=== PATIENT | male | born 1970 | race Caucasian/White ===

== ENCOUNTER 2017-06-19 22:45 | Emergency (ER) | payer BC ==
[~2017-06-19] VITALS: Ht 175.3 cm; Wt 100.9 kg
[2017-06-19 23:17] LABS: HEMATOCRIT 38.3 % (38.0-50.0); MCH 31.4 PG (29.0-34.0); MCHC 33.2 G/DL (30.0-36.0); MCV 94.8 FL (86-99); MEAN PLAT.VOLUME 9.9 uM^3 (9.0-12.4); PLATELET COUNT 247 K/uL (156-360); RBC DIS.WIDTH-CV 12.7 % (11.8-14.6); RBC DIS.WIDTH-SD 43.9 % (39-53); RED BLOOD COUNT 4.04 M/uL (4.00-5.50); WHITE BLOOD COUNT 8.6 K/uL (4.1-10.2)
[2017-06-19 23:25] LABS: CHLORIDE 105 mEq/L (99-109); POTASSIUM 3.7 mEq/L (3.7-5.4); SODIUM 141 mEq/L (136-147)
[2017-06-19 23:27] LABS: GLUCOSE 96 mg/dL (70-99)
[2017-06-19 23:28] LABS: ANION GAP 9 MEQ/L (2-14)
[2017-06-19 23:29] LABS: TOTAL BILIRUBIN 0.3 mg/dL (0.0-1.0)
[2017-06-19 23:30] LABS: ALKALINE PHOSPHATASE 105 IU/L (3-129)
[2017-06-19 23:31] LABS: GFR ESTIMATE (CALCULATED) > 59 mL/min/
[2017-06-19 23:32] LABS: UREA NITROGEN (BUN) 15 mg/dL (9-23)
[2017-06-20] MEDS ORDERED: PERCOCET 5/31 TABLET PO (01:00)
[2017-06-20 01:10] VITALS: BP 117/68
== END 2017-06-20 01:11 | disposition home or self-care (01) ==
LOC: EME 22:45
DX: S80.12XA Contusion of left lower leg, initial encounter (principal); W19.XXXA Unspecified fall, initial encounter; L55.9 Sunburn, unspecified
CPT/HCPCS: 73564; 73590; 73610; 80053; 85027; 93971; 99281; 99284